=== PATIENT | male | born 1990 | race Caucasian/White ===

== ENCOUNTER 2021-10-21 10:14 | Emergency (ER) | payer OTHER ==
[~2021-10-21] VITALS: Ht 177.8 cm; Wt 95.7 kg
[2021-10-21] MEDS ORDERED: LIDODERM1 EACH TOP (13:20)
[2021-10-21] MEDS ORDERED: IBU600 MG PO (13:20)
[2021-10-21] MEDS ORDERED: MAPAP500 MG PO (13:20)
== END 2021-10-21 13:33 | disposition home or self-care (01) ==
LOC: ED 10:14
DX: S06.0X9A Concussion with loss of consciousness of unspecified duration, initial encounter (principal); S22.42XA Multiple fractures of ribs, left side, initial encounter for closed fracture; V49.9XXA Car occupant (driver) (passenger) injured in unspecified traffic accident, initial encounter
CPT/HCPCS: 70450; 71101; 99284-25; A9270